=== PATIENT | male | born 1965 | race African-American/Black ===

== ENCOUNTER 2019-04-09 07:33 | Emergency (ER) | payer MEDICAID ==
[~2019-04-09] VITALS: Ht 185.4 cm; Wt 83.7 kg
[2019-04-09 07:44] VITALS: BP 168/119
--- NOTE | 2019-04-09 08:36 | NUR ---
PT HERE WITH C/O R FOOT PAIN ALONG THE PLANTAR REGION, PT STATES IS HAS BEEN GOING ON FOR 2 DAYS, PT DENIES TRAUMA.
[2019-04-09 09:37] LABS: HCT (SEDRATE) 44.3 % (39.2-51.8)
[2019-04-09 09:38] LABS: BASOPHILS # (AUTO) 0.03 x10^3/uL (0-0.1); BASOPHILS % (AUTO) 1 % (0-1); EOSINOPHILS # (AUTO) 0.23 x10^3/uL (0-0.4); EOSINOPHILS % (AUTO) 5 % (1-7); LYMPHOCYTES % (AUTO) 37 % (22-44); MD NO; MEAN CORPUSCULAR HEMOGLOBIN 32.5 pg (27.5-34.5); MEAN CORPUSCULAR HGB CONC 33.4 g/dL (33.2-36.2); MEAN CORPUSCULAR VOLUME 97.3 fL (81-97); MEAN PLATELET VOLUME 7.8 fL (7.4-10.4); MONOCYTES # (AUTO) 0.38 x10^3/uL (0.2-0.8); MONOCYTES % (AUTO) 8 % (2-9); NEUTROPHILS # (AUTO) 2.24 x10^3/uL (1.8-6.8); NEUTROPHILS % (AUTO) 49 % (42-75); PLATELET COUNT 271 x10^3/uL (130-400); RED BLOOD COUNT 4.55 x10^6/uL (4.38-5.82)
[2019-04-09 09:47] LABS: ALANINE AMINOTRANSFERASE 32 U/L (12-78); ALBUMIN 4.1 g/dL (3.4-5.0); ANION GAP 5 mmol/L (5-15); CALCIUM 9.5 mg/dL (8.5-10.1); CHLORIDE 106 mmol/L (98-107); CREATININE 1.14 mg/dL (0.7-1.3)
[2019-04-09 09:50] LABS: ALKALINE PHOSPHATASE 62 U/L (45-117); BILIRUBIN,TOTAL 0.7 mg/dL (0.2-1.0); TOTAL PROTEIN 8.7 g/dL (6.4-8.2)
== END 2019-04-09 11:08 | disposition home or self-care (01) ==
LOC: ED 10:09
DX: M13.172 Monoarthritis, not elsewhere classified, left ankle and foot (principal); M10.9 Gout, unspecified; I10 Essential (primary) hypertension
CPT/HCPCS: 36415; 80053; 80307; 84550; 85025; 85651; 99284